=== PATIENT | female | born 1960 | race Caucasian/White ===

== ENCOUNTER 2018-11-14 09:59 | Day surgery (SDC) | payer BC, OTHER | END 2018-11-14 12:45 | disposition home or self-care (01) | LOC: JASU-ENDO 09:59 ==

== ENCOUNTER 2021-11-26 04:25 | Day surgery (SDC) | payer BC, OTHER ==
[2021-11-25 09:55] VITALS: BMI 24.0
[2021-11-26] MEDS ORDERED: ONDANSETRON 4 MG/2 ML VIAL IVPUSH PRN (10:13)
[2021-11-26] MEDS ORDERED: LACTATED RINGERS SOLUTION 1,000 ML IV SCH (10:15)
[2021-11-26] MEDS ORDERED: LIDOCAINE 1%/EPI 1:100000 (20 ML MULTI DOSE VIAL) ONE (10:32)
[2021-11-26] MEDS ORDERED: MIDAZOLAM HCL 2 MG/2 ML SINGLE DOSE VIAL ONE (10:32)
[2021-11-26] MEDS ORDERED: PROPOFOL 20 ML ONE (10:37)
[2021-11-26] MEDS ORDERED: ceFAZolin SODIUM 1 GM VIAL IVPB ONE (10:55)
[2021-11-26] MEDS ORDERED: LIDOCAINE 1%/EPI 1:100000 (20 ML MULTI DOSE VIAL) IJ ONE (11:02)
[2021-11-26] MEDS ORDERED: BENZOIN/ALOE VERA/STORAX/TOLU 58 ML BOTTLE ONE (11:35)
[2021-11-26] MEDS ORDERED: SUCCINYLCHOLINE CHLORIDE 200 MG/10 ML SYRINGE ONE (12:46)
[2021-11-26 13:45] VITALS: BP 120/81; PULSE 71; TEMP 98
== END 2021-11-26 13:42 | disposition home or self-care (01) ==
LOC: JASU-SURG 04:25
PROVIDERS: ATTEND Surgery
PROC: 0JB70ZX Excision of Back Subcutaneous Tissue and Fascia, Open Approach, Diagnostic (ICD-10-PCS; principal; 2021-11-26 10:00)
DX: D21.6 Benign neoplasm of connective and other soft tissue of trunk, unspecified (principal)
CPT/HCPCS: 88305-TC; 94760

== ENCOUNTER 2024-04-10 04:27 | Day surgery (SDC) | payer BC, OTHER ==
[2024-04-03 08:44] VITALS: BMI 24.7
[2024-04-10 08:33] VITALS: TEMP 98
[2024-04-10 08:59] VITALS: RESP 18
[2024-04-10 09:09] VITALS: BP 113/75; PULSE 78
== END 2024-04-10 09:28 | disposition home or self-care (01) ==
LOC: JASU-ENDO 04:27
PROVIDERS: ATTEND Internal Medicine Gastroenterology
PROC: 0DBP8ZX Excision of Rectum, Via Natural or Artificial Opening Endoscopic, Diagnostic (ICD-10-PCS; principal; 2024-04-10 08:00)
DX: Z12.11 Encounter for screening for malignant neoplasm of colon (principal); D12.8 Benign neoplasm of rectum; Z86.0100 Personal history of colon polyps, unspecified; K59.01 Slow transit constipation
CPT/HCPCS: 88305-TC